=== PATIENT | male | born 1945 | race Caucasian/White ===

== ENCOUNTER 2018-05-28 00:17 | Day surgery (SDC) | payer MEDICARE, OTHER ==
[~2018-05-28] VITALS: Ht 180.3 cm; Wt 70.3 kg
[2018-05-28] VITALS (7 sets, daily range): BP systolic 130–177; BP diastolic 60–98
[~2018-05-28 00:17] MED LIST: GLYB-97 PO; VITA-175 PO
[2018-05-28] MEDS ORDERED: NORMOSOL R SOLN(*) 1000 ML BAG 1,000 ML IV PRN (06:45)
[2018-05-28] MEDS ORDERED: ACETAMINOPHEN 500 MG TAB PO ONE (06:45)
[2018-05-28] MEDS ORDERED: PREGABALIN 75 MG CAPSULE PO ONE (06:45)
[2018-05-28] MEDS ORDERED: FAMOTIDINE 20 MG TAB PO ONE (06:45)
[2018-05-28] MEDS ORDERED: MIDAZOLAM 2 MG/2 ML VIAL IVP PRN (06:45)
[2018-05-28] MEDS ORDERED: ceFAZolin(*) 2GM/D5W 50ML 50 ML IVPB ONE (06:45)
[2018-05-28] MEDS ORDERED: LIDOCAINE/SOD BICARB 8.4% SYR ID ONE (06:45)
--- NOTE | 2018-05-28 07:05 | Gen Surgery H&P BLANK ---
GENERAL SURGERY H&P BLANK Intake Intake Chief Complaint: Bilateral Hernia Consult Additional Information Dr. Bell in [place] referred the pt. for further evaluation of bilat. inguinal hernias. Pt has had the hernias for years and they are asymptomatic. Bulge on L. is greater than the R. Reviewed by: Dr. Kika Jarrett Vitals: Height 5 ft 11 in / 180.34 cm Weight 163 lbs 4 oz / 74.825331 kg BSA 1.93 m2 BMI 22.8 kg/m2 Temperature 98 F / 36.67 C - Temporal Pulse 72 Respirations 14 Blood Pressure 161/89 Sitting, Left Arm Pulse Oximetry 95%, RA Pain Ratin History of Present Illness Details 71-year-old gentleman presents with bilateral groin bulges. He's noticed these for many years, even up to 20 years. They are asymptomatic. There is some question as to whether the left bulge is getting bigger but on further thought he does not think it is. His stools are soft and easy to pass. He does not strain to urinate. He denies any chronic cough. 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 He saw a surgeon in [place] who recommended repair but he is looking for a 2nd opinion. Review of Systems Constitutional Constitutional ROS: Denies: unintentional weight loss, night sweats, fever, chills, other Neurological Neurological ROS: Denies: lightheadedness/dizziness, vertigo, other Eyes EYE ROS: Denies: new/intermitt vision prob, scleral icterus, other Ears, Nose and Throat ENT ROS: Denies: recurring epistaxis, hoarseness, other Cardiopulmonary Cardiopulmonary ROS: Denies: chronic cough, shortness of breath, hemoptysis, chest pain, claudication, lower extremity edema, other Gastrointestinal Gastrointestinal ROS: Denies: nausea, vomiting, early satiety, diarrhea, hematemesis, dysphagia, abdominal pain, constipation, hematochezia, regurgitation, melena, other Genitourinary Genitourinary ROS: Denies: dysuria, hematuria, other Musculoskeletal Musculoskeletal ROS: Denies: joint pain, muscle pain ROS Reviewed by ROS Reviewed by: Dr. Kika Jarrett Exam General Appearance: Alert, Awake, No Acute Distress, Afebrile Neuro: No Gross deficits Eyes: PERRLA GI: Abd Soft and Non-Tender (bilateral inguinal hernias. The left is greater than the right. They're both soft and easily reducible. There is no tenderness to palpation.) Extremities: Warm, Perfused Assessment and Plan Ambulatory Assessment/Plan: Bilateral inguinal hernia (BIH) Non-recurrent bilateral inguinal hernia without obstruction or gangrene - K40.20 Obstruction and gangrene presence: without obstruction or gangrene Recurrence: non-recurrent Notes I discussed inguinal hernias with the patient in great detail as well as their treatment. We discussed the risks of not having them repaired including incarceration and strangulation and what signs and symptoms to look out for if these should occur. I discussed my preferred repair technique which, especially for bilateral hernias, would be robotic-assisted laparoscopic repair with mesh. I explained the operation to him as well as the risks and expected recovery. We also discussed his need for colonoscopy for screening and I explained the national colon cancer screening guidelines. He has never had a colonoscopy. He asked some questions but was not ready to commit to any procedure at this time. He can follow-up with me if he has any questions or if he wishes to proceed with either colonoscopy or inguinal hernia repair. Pt subsequently called the office and had decided that he wanted to proceed with robotic bilateral inguinal hernia repair. He reported that there had been no change in his medical status or any new medical problems and no change in medications. The procedure was explained to him in great detail along with the alternatives, risks, and expected recovery. He indicated his understanding of this discussion and his questions were answered. He would like to proceed with robotic bilateral inguinal hernia repair. Venous Thromboembolism VTE Risk Physician Assess for VTE Risk: Yes Patient's VTE Risk: Low VTE Diagnostic Test 2 Days Prior to Admit: No Antithrombotics Is Pt On Any Antithrombotics?: No KIKA JARRETT MD May 28, 2018 07:05
[2018-05-28] MEDS ORDERED: DEXAMETHASONE SOD PHOS 10MG/ML ONE (07:28)
[2018-05-28] MEDS ORDERED: fentaNYL CITR 100 MCG/2 ML AMP ONE ×2 (07:28→10:17)
[2018-05-28] MEDS ORDERED: LIDOCAINE MPF 1% 5 ML VIAL ONE (07:28)
[2018-05-28] MEDS ORDERED: ONDANSETRON 4 MG/2 ML VIAL ONE (07:28)
[2018-05-28] MEDS ORDERED: PROPOFOL EMUL(*) 10MG/ML 20 ML 20 ML ONE (07:28)
[2018-05-28] MEDS ORDERED: ROCURONIUM BROM 10 MG/ML 10 ML ONE (07:29)
[2018-05-28] MEDS ORDERED: ROPIVACAINE 0.5% 20 ML VIAL ONE (07:31)
[2018-05-28] MEDS ORDERED: LABETALOL HCL 100 MG/20ML VIAL ONE (09:29)
[2018-05-28] MEDS ORDERED: SUGAMMADEX SOD 200 MG/2 ML SDV ONE (09:34)
[2018-05-28] MEDS ORDERED: DOCU-416 PO (10:03)
[2018-05-28] MEDS ORDERED: OXYC-854 PO (10:03)
--- NOTE | 2018-05-28 10:06 | Short(Outpt) Discharge Summary ---
Discharge Summary Reason for Hosp/Final Diag: (1) Bilateral inguinal hernia (BIH) Status: Chronic Hospital Course & Plan: Robotic BIH repair completed without any problems. Departure Discharge to: Home, Self Care Discharge Instructions Home Meds Active Scripts Docusate Sodium (COLACE) 100 Mg Capsule, 1 CAP PO BID, #30 CAP 0 Refills TAKE WITH A FULL GLASS OF WATER Prov:KIKA JARRETT MD 05/28/18 Oxycodone Hcl/Acet 5/325 Mg (ENDOCET 5-325 TABLET) 1 Each Tablet, 1 TAB PO Q4H PRN for PAIN, #30 TAB 0 Refills Prov:KIKA JARRETT MD 05/28/18 Reported Medications Vitamin B Complex (B COMPLEX) 1 Each Tablet, 1 EACH PO DAILY 05/20/18 Glyburide/Metformin Hcl (GLUCOVANCE 2.5-500 MG TABLET) 1 Each Tablet, 1 EACH PO BID 08/15/17 Follow up Referrals: General Surgery - 06/15/18 @ Surgery, General with KIKA JARRETT MD You have a follow up appointment scheduled with Dr. Jarrett on 06/15/18, at 4:00pm. Diet: Regular Activity: As Tolerated Special Instructions: You may remove the white surgical dressings on 05/30/18, then you can shower. After showering, leave the incisions open to air but leave the steristrips in place until they fall off on their own. Do not immerse the incisions for 2 weeks. Avoid any activity that involves straining or lifting more than 10 pounds for 2 weeks after surgery. Problem Qualifiers (1) Bilateral inguinal hernia (BIH): Obstruction and gangrene presence: without obstruction or gangrene Recurrence: non-recurrent Qualified Codes: K40.20 - Bilateral inguinal hernia, without obstruction or gangrene, not specified as recurrent KIKA JARRETT MD May 28, 2018 10:06
--- NOTE | 2018-05-28 10:13 | Post Operative Progress Note ---
Post Operative Progress Note Date: May 28, 2018 Time: 10:07 Surgeon: Shima Dictation number: [id number] Anesthesia: GETA by Dr. Mejia Pre-Op Diagnosis: BIH Post-Op Diagnosis: ANNABELLE, both direct Findings: Bilateral direct hernia, small right cord lipoma Procedure(s): Robotic BIH repair Specimen Removed:(May be N/A): None Complications: None Fluids: See anesthesia record Estimated Blood Loss: Minimal Date OP Note Dictated: May 28, 2018 Time OP Note Dictated: 10:07 KIKA JARRETT MD May 28, 2018 10:13
--- NOTE | 2018-05-28 11:58 | OPERATIVE REPORT 1 ---
EVENT DATE: May 28, 2018 SURGEON: Jeffrey Ronquillo M.D. ANESTHESIOLOGIST: Larry Mejia MD ANESTHESIA: General. CAR ATTENDANT: [*] PREOPERATIVE DIAGNOSIS Bilateral inguinal hernias. POSTOPERATIVE DIAGNOSIS Bilateral inguinal hernias. PROCEDURE PERFORMED Robotic bilateral inguinal hernia repair. COMPLICATIONS None. CONDITION Stable. ESTIMATED BLOOD LOSS Minimal. FINDINGS This patient had bilateral direct inguinal hernias. There was a small cord lipoma on the right but no indirect hernia on either side. INDICATIONS This is a 72-year-old gentleman who presented to my office with bilateral groin bulges. They were consistent with hernias and I discussed his treatment options and ultimately he decided to proceed with robotic inguinal hernia repair. DESCRIPTION OF PROCEDURE The patient was brought to the operating room and placed supine on the operating table. General endotracheal anesthesia was administered and his abdomen was prepped and draped in sterile fashion. Time out was completed and I injected 0.5% ropivacaine plain into the left subcostal skin and then made an 8 mm incision and used a Veress needle to access the peritoneal cavity and insufflated the peritoneal cavity to a pressure of 15 mmHg. I then used the robotic optical trocar with a 5 mm 0-degree scope, inserted and focused and was able to insert the trocar into the insufflated abdomen under direct visualization without any problems. I then inserted the robotic port into this scope and inspected both groins and saw bilateral hernias. I then placed an 8 mm robotic port in the right subcostal area and a third 8 mm robotic port in the epigastric midline. I then inserted a piece of right sided and left sided ProGrip mesh and two absorbable V-Loc sutures into the peritoneal cavity and then the patient was placed in Trendelenburg and the robot was brought in, docked and targeted. The instruments were inserted and then I scrubbed out and went to the console. I then divided the peritoneum from both the medial to the right anterior superior iliac spine all the way to just medial to the left anterior superior iliac spine. I then stripped the peritoneum down and created the space in the preperitoneal space all the way down to both groins. I did this well below the iliopubic tract bilaterally. I pulled the peritoneum out of both direct defects bilaterally and then cleaned off the cord structures bilaterally, identified the vas deferens and gonadal vessels bilaterally. There were no indirect hernia sacs going into the inguinal canal. After this was all completed, I then pulled the fascia out of the direct hernias and sewed them to the edge of the myopectineal arch with running V-Loc sutures. This made it so there was not a big potential space remaining behind. I did this on both sides. I then placed the mesh into the space, the left sided mesh on the left side of the groin and the right sided mesh on the right side of the groin and unfurled these and made sure they laid flat. They both covered the myopectineal orifice in a very nice fashion with several centimeters of overlap on all sides. They went well down to where the cord structures splayed but the fold of the peritoneum that I had stripped down was well below the mesh so it did not undergo the mesh. I then made sure these both laid flat and then I closed the peritoneal incision that I had made with running V-Loc sutures. Everything laid nicely and there were no peritoneal defects and no exposed mesh. I then removed the instruments, undocked the robot, desufflated the abdomen, removed the ports and closed the skin at each port site with 4-0 Monocryl subcuticular sutures. The skin was cleaned and dried and steri-strips applied followed by sterile surgical dressings. The patient was awakened and extubated in the operating room and transported to the recovery room in stable condition, having tolerated the procedure without any apparent problems. LUIS ALBERTO
== END 2018-05-28 11:47 | disposition home or self-care (01) ==
LOC: OR 00:17
PROVIDERS: ATTEND Surgery
DX: K40.20 Bilateral inguinal hernia, without obstruction or gangrene, not specified as recurrent (principal); E11.9 Type 2 diabetes mellitus without complications
CPT/HCPCS: 36416; 49650; 82948; A9270; C1781; J1100; J2001; J2405; J2704; J2795; J3010; J3490; S2900; J0690